=== PATIENT | male | born 1995 | race African-American/Black ===

== ENCOUNTER 2021-08-22 07:57 | Emergency (ER) | payer OTHER, SELFPAY ==
[2021-08-22 08:01] VITALS: BP 124/57; PULSE 59; RESP 18; TEMP 36.6; O2SAT 100; BMI 29.8
--- NOTE | 2021-08-22 08:23 | ED.WOUNDLAC ---
HPI - Wound/Laceration General Chief Complaint: Skin/Abscess/Foreign Body Stated Complaint: swollen arm, lip Time Seen by Provider: 08/22/21 08:21 Source: patient Mode of arrival: ambulatory Limitations: no limitations History of Present Illness HPI narrative: swelling after horse fly bites to R elbow and R lower lip Onset (ago): day(s) (1) Location: face Extremity Location: right: elbow Place: outdoors Patient tetanus UTD: Yes Context: accidental Associated symptoms: other (swelling) Related Data Previous Rx's Medication Instructions Recorded prednisone 20 mg tablet 40 mg PO DAILY 4 days #8 tabs 08/22/21 Allergies Allergy/AdvReac Type Severity Reaction Status Date / Time No Known Allergies Allergy Verified 08/22/21 08:32 Review of Systems Review of Systems: Constitutional : No Fever, No Chills ENT/Mouth : positive lip swelling, No Hoarseness, No Swallowing Difficulty Eyes: No Eye Pain, No Swelling, No Redness Cardiovascular : No Chest Pain, No SOB Respiratory : No Cough, No Sputum, No Wheezing, No Dyspnea Gastrointestinal : No Nausea, No Vomiting, No Diarrhea, No abdominal Pain Genitourinary : No Dysuria, No Urinary Frequency, No Hematuria Musculoskeletal : No joint pain, No Myalgias, No Joint Swelling Skin : No Skin Lesions, no rash, pos insect bite Neuro : No Weakness, No Numbness, No Headache PMFSH Past Medical History Attestation statement: The following information was validated with the patient. Medical History No pertinent past medical history Social History Social History (Updated 08/22/21 @ 08:36 by Joaquina Franco DO) Patient Tobacco Use Status: Never used Tobacco Physical Exam Vital Signs: Vital Signs: Last Vital Signs Temp 97.9 F 08/22/21 08:01 Pulse 59 08/22/21 08:01 Resp 18 08/22/21 08:01 BP 124/57 L 08/22/21 08:01 Pulse Ox 100 08/22/21 08:01 O2 Del Method 08/22/21 08:01 BMI result Body Mass Index 29.8 Appearance: Alert. Oriented X3. No acute distress. Eyes: Pupils equal, round and reactive to light. ENT: Pharynx normal. no posterior swelling, tongue normal, R lower lip isolated mild swelling Neck: Normal inspection. Neck supple. no stridor CVS: Normal heart rate and rhythm. Pulses normal. Respiratory: No respiratory distress. Breath sounds normal. Abdomen: Soft and nontender. Skin: Skin warm and dry. Normal skin color. Normal skin turgor. Extremities: No lower extremity edema. R elbow olecranon area mild swelling no erythema Neuro: Oriented X 3. No motor deficit. No sensory deficit. MDM - Wound/Laceration MDM Narrative Medical decision making narrative: 25 yo male with no PMH here with localized allergic reaction after horse bites to R elbow and R lower lip no resp issues no other complaints - not toxic, no signs of infection will start on prednisone and DC home with precautions Discharge Plan Discharge Clinical Impression: Allergic reaction Patient Disposition: Home, Self-Care Instructions: General Allergic Reaction (ED) Additional Instructions: return to ED for any worsening symptoms or concerns Prescriptions: New prednisone 20 mg tablet 40 mg PO DAILY 4 Days Qty: 8 0RF Stand Alone Forms: Work/School Release
[2021-08-22] MEDS: predniSONE 20 MG TABLET 40 MG PO (08:38)
== END 2021-08-22 08:48 | disposition home or self-care (01) ==
LOC: HO.ED 08:48
PROVIDERS: Emergency Provider Emergency Medicine
DX: L50.0 Allergic urticaria (principal); R22.9 Localized swelling, mass and lump, unspecified
CPT/HCPCS: 99282; 99283

== ENCOUNTER 2022-10-15 11:57 | Emergency (ER) | payer OTHER, SELFPAY ==
--- NOTE | ~2022-10-15 | XR_ITS ---
EXAMINATION: XR THORACIC SPINE CLINICAL INFORMATION: Atraumatic back pain. COMPARISON: None available. TECHNIQUE: 3 views of the thoracic spine were obtained. FINDINGS: There is no fracture or bone destruction seen and the vertebral alignment is normal. There is no disc space narrowing. There is no abnormality of the paraspinal soft tissues. XR/XR thoracic spine 3V IMPRESSION: Unremarkable thoracic spine.
[2022-10-15 12:16] VITALS: BP 124/78; PULSE 70; RESP 18; TEMP 36.7; O2SAT 99; BMI 30.9
--- NOTE | 2022-10-15 12:17 | ED.BACK ---
HPI - Back Pain/Injury General Chief Complaint: Back Pain/Injury Stated Complaint: Mid Back Pain No Injury Time Seen by Provider: 10/15/22 14:14 Source: patient, RN notes reviewed and old records reviewed Mode of arrival: ambulatory History of Present Illness HPI Narrative: 26-year-old male with no significant past medical history presenting to the ED complaining of atraumatic midback pain since yesterday. Denies known injury, however reports heavy lifting at work. denies radiation of pain, urinary incontinence/retention, fever, numbness/tingling, weakness, difficulty ambulating. Admits tried girlfriend's muscle relaxer at home with little relief. MD elicited complaint: back pain Related Data Previous Rx's Medication Instructions Recorded prednisone 20 mg tablet 40 mg PO DAILY 4 days #8 tabs 08/22/21 acetaminophen 500 mg tablet 500 mg PO Q6H PRN fever or pain 10/15/22 (Tylenol Extra Strength) #14 tabs cyclobenzaprine 5 mg tablet 5 mg PO Q8H PRN pain (scale score 10/15/22 7-10) 5 days #14 tabs lidocaine 5 % topical patch 1 patch topical DAILY PRN pain #30 10/15/22 (Lidoderm) ea naproxen 500 mg tablet 500 mg PO BID PRN pain 10 days #20 10/15/22 tabs Allergies Allergy/AdvReac Type Severity Reaction Status Date / Time No Known Allergies Allergy Verified 08/22/21 08:32 Review of Systems Review of Systems: Constitutional: No Fever, No Chills ENT/Mouth: No Ear Pain, No Nasal Congestion, No sore throat, No Rhinorrhea, No Swallowing Difficulty Cardiovascular: No Chest Pain, No SOB Respiratory: No Cough, No Sputum, No Wheezing Gastrointestinal: No Nausea, No Vomiting, No Diarrhea, No Abdominal pain Genitourinary: No Dysuria, No Urinary Frequency, No Hematuria, No Urinary Incontinence/retention, No Flank Pain Musculoskeletal: +joint pain, No Myalgias, No Joint Swelling Skin: No Skin Lesions, No rash Neuro: No Weakness, No Numbness, No Paresthesias Yes all other systems are reviewed and are negative Constitutional: Constitutional: Reports as per [facility] Past Medical History Attestation statement: The following information was validated with the patient. Source: old records reviewed Medical History No pertinent past medical history Social History Social History Patient Tobacco Use Status: Never used Tobacco Physical Exam Vital Signs: Vital Signs: Last Vital Signs Temp 98.1 F 10/15/22 12:16 Pulse 70 10/15/22 12:16 Resp 18 10/15/22 12:16 BP 124/78 10/15/22 12:16 Pulse Ox 99 10/15/22 12:16 O2 Del Method Room Air 10/15/22 12:16 BMI result Body Mass Index 30.9 Const: General: cooperative, healthy appearing and no acute distress Orientation/consciousness: patient oriented x3 Limitations: no limitations HEENT: Head: Yes normal to inspection and Yes atraumatic Ears: hearing grossly normal bilaterally General nose exam: Normal external nose present Face and sinus: Yes normal facial exam Eyes: General: appearance normal, both eyes and all related structures EOM: EOMs intact bilaterally Neck: Neck: Yes normal visual inspection and Yes no meningeal signs Resp: Effort & Inspection: normal respiratory effort and no respiratory distress Cardio: Rate: regular rate Heart sounds: S1 normal heart sound present and S2 normal heart sound present GI: Inspection: Yes normal to inspection Palpation (GI): Soft to palpation, nontender, no guarding and not rigid : General: Yes no CVA tenderness Back/Spine/Pelvis: Other: No midline cervical/thoracic/lumbar spinous tenderness/step-off or deformity. +bilateral thoracic paraspinal ttp. no ecchymosis/erythema Back: no CVA tenderness Skin: Rashes: no rashes Wounds: no wounds Neuro: Other: Strength intact throughout. No saddle anesthesia. Sensation intact to light touch. Neurovascular intact distally General: patient oriented x3, tone normal, moves all extremities and no meningeal signs Cranial nerves: Yes CN's II-XII intact bilaterally Gait exam (Neuro): Normal gait present Motor exam (neuro): 5/5 motor strength present throughout Extrem: General: Yes normal to inspection Course Course Course Narrative: XR thoracic spine 3V IMPRESSION: Unremarkable thoracic spine. Results discussed with patient including worrisome signs and symptoms and strict return precautions, and when to return to the emergency department. They verbalized understanding and feel safe for discharge at this time. Medical Decision Making Medical Decision Making MDM Narrative: 26-year-old male with no significant past medical history presenting to the ED complaining of atraumatic midback pain since yesterday. On exam vital signs stable, NAD, nontoxic appearing, physical exam as noted above, no red flag symptoms, ambulating with steady gait, no saddle anesthesia. Concern for MSK pain/strain and muscle spasming. Low suspicion for cauda equina/cord compression or epidural abscess Plan: X-rays, pain control/PCP follow-up Please refer to course for remaining clinical decision making, interpretation of labs/imaging results, and discussions with consultants and/or family members. Differential Diagnosis Differential Diagnoses: The differential diagnosis associated with the presentation includes As above Independent Interpretation I performed an independent interpretation of an: Plain X-Ray Radiology Impression Discussion of test interpretation with radiology: I have reviewed the radiologist's reading. External Record Review External record reviewed: Inpatient record, Office record, Outpatient record, Prior outpatient labs, Prior outpatient radiology, Primary care record and Outside ED record Tests considered The following testing was considered but not selected: As above Prescription Management I considered prescription management with: Pain Medication Discharge Plan Discharge Clinical Impression: Thoracic back pain Patient Disposition: Home, Self-Care Instructions: Back Pain (ED) Additional Instructions: Your pain is likely musculoskeletal Flexeril is a muscle relaxer, take at night as it makes you drowsy, do not drive, drink alcohol, or operate machinery while taking it Naproxen as an anti-inflammatory / pain medication, take with food Lidoderm patches are numbing patches, apply to painful area In addition take Tylenol at home If symptoms persist or worsen, pain becomes unbearable, you developed urinary retention or incontinence, or weakness return to the ED Prescriptions: New acetaminophen [Tylenol Extra Strength] 500 mg tablet 500 mg PO Q6H PRN (Reason: fever or pain) Qty: 14 0RF lidocaine [Lidoderm] 5 % adhesive patch,medicated 1 patch topical DAILY MDD remove after 12 hours PRN (Reason: pain) Qty: 30 0RF Rx Instructions: leave on most painful area for up to 12 hrs naproxen 500 mg tablet 500 mg PO BID PRN (Reason: pain) 10 Days Qty: 20 0RF cyclobenzaprine 5 mg tablet 5 mg PO Q8H PRN (Reason: pain (scale score 7-10)) 5 Days Qty: 14 0RF No Action prednisone 20 mg tablet 40 mg PO DAILY 4 Days Qty: 8 0RF Referrals: ED Physician,Generic [Physician] - Stand Alone Forms: Work/School Release
== END 2022-10-15 14:18 | disposition home or self-care (01) ==
LOC: HO.ED 14:17
PROVIDERS: Emergency Provider Emergency Medicine; PCP Registered Nurse
DX: M54.6 Pain in thoracic spine (principal)
CPT/HCPCS: 72072; 99282; 99283

== ENCOUNTER 2022-12-24 11:30 | Emergency (ER) | payer OTHER, SELFPAY ==
--- NOTE | ~2022-12-24 | XR_ITS ---
EXAMINATION: XR THORACOLUMBAR SPINE CLINICAL INFORMATION: Pain after fall COMPARISON: 10/15/2022 TECHNIQUE: Thoracic spine, AP and lateral views FINDINGS: Thoracic vertebra have normal density, height and alignment. The anterior and posterior elements have an intact appearance. The disc spaces are maintained. No arthritic deformity. The visualized soft tissues are unremarkable. XR/XR thoracic spine 2V IMPRESSION: Thoracic spine is normal. No fracture or malalignment.
[2022-12-24 11:52] VITALS: BP 145/94; PULSE 74; RESP 16; TEMP 36.1; O2SAT 98; BMI 31.0
--- NOTE | 2022-12-24 11:52 | ED_ITS ---
HPI - General Adult General Chief complaint: Back Pain/Injury Stated complaint: back pain Time Seen by Provider: 12/24/22 14:53 Source: patient Mode of arrival: ambulatory Limitations: no limitations History of Present Illness HPI narrative: 27 yo male presenting with upper back pain after he slipped and fell on the cement yesterday. He went running outside to catch his cat when he fell on wet leaves, fell onto his back. He has had pain between his shoudler blades since, worse with movement, improved w/ antiinflammatories meds. No SOB, difficulty breathing, joint pain, chest pain or abdominal pain. Not on blood thinners. No neck or head pain MD complaint: upper back pain s/p fall Onset (ago): day(s) (1) Location: back Radiation: non-radiation Severity: moderate Severity scale (1-10): 6 Quality: aching Pain Consistency: constant Relieving factors: medication and rest Exacerbating factors: movement Associated symptoms: denies other symptoms Treatments prior to arrival: NSAID Related Data Previous Rx's Medication Instructions Recorded prednisone 20 mg tablet 40 mg (2 x 20 mg) PO DAILY 4 days 08/22/21 #8 tabs acetaminophen 500 mg tablet 500 mg PO Q6H PRN fever or pain 10/15/22 (Tylenol Extra Strength) #14 tabs cyclobenzaprine 5 mg tablet 5 mg PO Q8H PRN pain (scale score 10/15/22 7-10) 5 days #14 tabs lidocaine 5 % topical patch 1 patch topical DAILY PRN pain #30 10/15/22 (Lidoderm) ea naproxen 500 mg tablet 500 mg PO BID PRN pain 10 days #20 10/15/22 tabs cyclobenzaprine 10 mg tablet 10 mg PO TID PRN muscle spasm #14 12/24/22 tabs ibuprofen 600 mg tablet 600 mg PO Q8H PRN pain #14 tabs 12/24/22 lidocaine 5 % topical patch 1 patch topical DAILY #15 ea 12/24/22 Allergies Allergy/AdvReac Type Severity Reaction Status Date / Time No Known Allergies Allergy Verified 08/22/21 08:32 Review of Systems Review of Systems: Yes all other systems are reviewed and are negative [facility] Past Medical History Medical History No pertinent past medical history Social History Social History Patient Tobacco Use Status: Never used Tobacco Advance Directives: No Physical Exam ED Vital Signs: Vital Signs - 24 hr 12/24/22 11:52 Temperature 97 F Pulse Rate 74 Respiratory Rate 16 Blood Pressure 145/94 H Pulse Oximetry 98 Oxygen Delivery Method Room Air BMI result Body Mass Index 31.0 Appearance: Alert. Oriented X3. No acute distress. HEENT: normal external inspection Neck: Normal inspection. Neck supple. CVS: Normal heart rate and rhythm. Pulses normal. Respiratory: No respiratory distress. Breath sounds normal. Abdomen: Soft and nontender. +BS x4 Back: normal inspection, no ecchymosis. soft tissue tenderness of the middle thoracic paraspinous muscles with palpable spasm. no midline tenderness Skin: Skin warm and dry. Normal skin color. Normal skin turgor. No rashes. Extremities: No lower extremity edema. No joint swelling. Normal ROM of bilateral shoulders Neuro/psych: Oriented X 3. grossly normal, nonfocal Course Course Course Narrative: RME performed by Krista Hines PA-C. Patient is a 27 year old assigned male at presenting to the emergency department with upper back pain. Patient states that he was chasing his cat, slipped, fell, and landed on his upper back. Imaging ordered. Patient placed back in the waiting room pending room availability and results. Medical Decision Making Medical Decision Making MDM Narrative: 27-year-old otherwise healthy male presents to the ER for evaluation of upper back pain after he slipped and fell on wet leaves yesterday, falling directly onto his back. No head strike or LOC. No other injuries. On examination he has palpable muscle spasm of the paraspinous muscles in the middle thoracic area. No midline tenderness. His lungs are clear on examination, no ecchymosis of the back or flank. X-ray today of the thoracic spine was normal. Pain is most likely muscular in nature. Will prescribe muscle relaxers and anti-inflammatories. He is stable for discharge home. Return precautions discussed. Patient agrees with plan. Work note provided per request Differential Diagnosis Differential Diagnoses: The differential diagnosis associated with the presentation includes muscle strain, muscle spasm, contusion, spinal fracture, pulmonary contusion Independent Interpretation I performed an independent interpretation of an: Plain X-Ray Interpretation: no fx spine appreciated, agree w/ radiology read Radiology Impression Discussion of test interpretation with radiology: I have reviewed the radiologist's reading. Radiologist Impression: EXAMINATION: XR THORACOLUMBAR SPINE CLINICAL INFORMATION: Pain after fall COMPARISON: 10/15/2022 TECHNIQUE: Thoracic spine, AP and lateral views FINDINGS: Thoracic vertebra have normal density, height and alignment. The anterior and posterior elements have an intact appearance. The disc spaces are maintained. No arthritic deformity. The visualized soft tissues are unremarkable. XR/XR thoracic spine 2V IMPRESSION: Thoracic spine is normal. No fracture or malalignment. External Record Review External record reviewed: Prior outpatient labs Prescription Management I considered prescription management with: Pain Medication Critical Care Time Critical Care Time Critical Care Time: No Discharge Plan Discharge Clinical Impression: Back pain, thoracic Qualifiers: Chronicity: acute Back pain laterality: bilateral Qualified Code(s): M54.6 - Pain in thoracic spine Patient Disposition: Home, Self-Care Instructions: Back Pain (ED) Additional Instructions: Your x-ray today did not show any broken bones. Your pain is most likely due to muscle strain and spasm. No bending, lifting or twisting. Use ice several times per day for 20 minutes at a time for the next 48 hours and then change to heat. Take medications as prescribed to help with pain and discomfort. Follow up with your Primary Care Doctor as needed If you develop new or worsening symptoms call 911 or come back to the ER for further evaluation. Prescriptions: New cyclobenzaprine 10 mg tablet 10 mg PO TID PRN (Reason: muscle spasm) Qty: 14 0RF lidocaine 5 % adhesive patch,medicated 1 patch topical DAILY Qty: 15 0RF Rx Instructions: leave on most painful area for up to 12 hrs ibuprofen 600 mg tablet 600 mg PO Q8H PRN (Reason: pain) Qty: 14 0RF No Action prednisone 20 mg tablet 40 mg PO DAILY 4 Days Qty: 8 0RF acetaminophen [Tylenol Extra Strength] 500 mg tablet 500 mg PO Q6H PRN (Reason: fever or pain) Qty: 14 0RF lidocaine [Lidoderm] 5 % adhesive patch,medicated 1 patch topical DAILY MDD remove after 12 hours PRN (Reason: pain) Qty: 30 0RF Rx Instructions: leave on most painful area for up to 12 hrs naproxen 500 mg tablet 500 mg PO BID PRN (Reason: pain) 10 Days Qty: 20 0RF cyclobenzaprine 5 mg tablet 5 mg PO Q8H PRN (Reason: pain (scale score 7-10)) 5 Days Qty: 14 0RF Referrals: Reta Marcos, HYDRATE CONTROL TENDER [Primary Care Provider] - Stand Alone Forms: Work/School Release
--- NOTE | 2022-12-24 15:41 | PC.NURSE ---
Pt d/c from [facility], pt in agreement with plan in place, medication education gone over. Pt able to independently ambulate out of ED stable on RA.
== END 2022-12-24 15:42 | disposition home or self-care (01) ==
PROVIDERS: Emergency Provider Emergency Medicine Emergency Medical Services; PCP Registered Nurse
DX: M54.6 Pain in thoracic spine (principal); Z79.899 Other long term (current) drug therapy
CPT/HCPCS: 72070; 99282; 99283

== ENCOUNTER 2023-06-24 09:16 | Emergency (ER) | payer OTHER, SELFPAY ==
[2023-06-24 09:44] VITALS: BP 139/80; PULSE 70; RESP 16; TEMP 36.4; O2SAT 99; BMI 31.0
[2023-06-24 10:32] LABS: MANUAL DIFF FLAG NO
[2023-06-24 10:35] LABS: Basophils Percent Auto 0.5 % (0-2); Eosinophils Percent Auto 0.7 % (0-4); Hematocrit 42.7 % (42.0-52.0); Hemoglobin 14.6 g/dl (14.0-18.0); Imm Gran Abs Auto 0.02 X10*3/uL (0.00-0.03); Imm Gran Pct Auto 0.3 % (0.0-0.4); Lymphocytes Absolute Auto 2.3 X10*3/uL (1.2-4.9); Lymphocytes Percent Auto 37.3 % (20-40); Mean Corpuscular HGB Conc 34.2 g/dl (31.0-36.0); Mean Corpuscular Hemoglobin 31.1 pg (27.0-33.0); Mean Corpuscular Volume 90.9 fL (80.0-98.0); Monocytes Absolute Auto 0.4 X10*3/uL (0.1-1.2); Monocytes Percent Auto 7.1 % (2-11); Neutrophils Absolute Auto 3.3 x10*3/uL (2.0-8.3); Neutrophils Percent Auto 54.1 % (45-73); Platelet Count 220 X10*3/uL (160-400); Red Cell Distribution Width 12.3 % (11.0-16.0); White Blood Count 6.1 X10*3/uL (4.8-10.8)
[2023-06-24 10:35] LABS: Appearance Urine Clear; Color Urine Yellow; Glucose Urine UA Negative (Negative); Leukocyte Esterase Urine Negative (Negative); Nitrite Urine Negative (Negative); PH 5.5 (5.0-9.0); Urine Blood Negative (Negative); Urine Ketones Negative (Negative); Urine Protein Negative (Neg-Trace)
[2023-06-24 10:47] LABS: Alanine Aminotransferase 40 U/L (0-40); Albumin Level 4.3 g/dL (3.5-5.0); Alkaline Phosphatase 51 U/L (39-117); Anion Gap 10 (12-20); Aspartate Amino Transferase 27 U/L (5-37); Bilirubin Total 0.2 mg/dL (0.0-1.0); Blood Urea Nitrogen 11 mg/dL (9-16); Calcium 9.8 mg/dL (8.4-10.2); Carbon Dioxide 27 mmol/L (22-29); Chloride 109 mmol/L (96-108); Creatinine Clr Calc Pharmacy 103.6; Estimated Glomerular Filt Rate > 60; Glucose Random 93 mg/dL (60-115); Sodium 142 mmol/L (135-145); Total Protein 7.1 g/dL (6.5-8.0)
== END 2023-06-24 17:07 | disposition left against medical advice (07) ==
PROVIDERS: Emergency Provider Emergency Medicine
DX: R10.9 Unspecified abdominal pain (principal); R11.10 Vomiting, unspecified
CPT/HCPCS: 36415; 80053; 81003; 85025; 99282; 99283